=== PATIENT | male | born 1965 | race Caucasian/White ===

== ENCOUNTER 2018-04-22 16:48 | Emergency (ER) | payer OTHER, BC ==
[~2018-04-22] VITALS: Ht 172.7 cm; Wt 72.6 kg
[~2018-04-22 16:48] MED LIST: LIDOCAINE 1% INJ 20 ML 20 ML VIAL ONE
[2018-04-22] MEDS ORDERED: LIDOCAINE 1% INJ 20 ML 20 ML VIAL INJ ONE ×2 (17:00→18:45)
[2018-04-22] MEDS ORDERED: ALPRAZolam 0.5 MG (XANAX) TAB PO SCH (17:00)
--- NOTE | 2018-04-22 17:28 | Diagnostic Imaging Report ---
INDICATION: Crush injury. FINDINGS: There is a comminuted tuft fracture of the left fourth finger with associated soft tissue injury. There are degenerative changes of the DIP and PIP joints. There is no other fracture or dislocation. Soft tissues are unremarkable. IMPRESSION: Comminuted tuft fracture of the left fourth finger with soft tissue injury. Degenerative changes of the DIP and PIP joints. Dictated by: Dictated on workstation # [id number]
--- NOTE | 2018-04-22 17:34 | ED Upper Extremity ---
General Chief Complaint: Laceration Stated Complaint: LT HAND FINGER INJ Nursing Triage Note: PT AMB TO ROOM #1 W/O DIFFICULTY. A&OX4. CO LACERATION WITH CRUSHING INJURY TO LT RING FINGER. PT REPORTS HE WAS AT WORK WHEN HE SMASHED HIS LT RING FINGER INBETWEEN A PIECE OF METAL AND THE CONCRETE FLOOR. PT REPORTS HE HAS HAD A TETANUS SHOT WITHIN THE LAST 5 YEARS. Nursing Sepsis Screen: No Definite Risk Source: patient Exam Limitations: no limitations History of Present Illness Date Seen by Provider: Apr 22, 2018 Time Seen by Provider: 18:24 Initial Comments To ER with reports of crush injury to the left ring finger. This occurred while at work. States that his left distal ring finger was crushed between a piece of sheet metal and the concrete floor. He has had a tetanus shot within the last 5 years. Onset: just prior to arrival Severity: moderate Pain/Injury Location: left 4th finger Modifying Factors: Worse With Movement Allergies and Home Medications Allergies Coded Allergies: No Known Drug Allergies (Unverified , 04/22/18) Home Medications Cephalexin 500 Mg Capsule, 500 MG PO Q6H Prescribed by: MARCO ANTONIO SUNSHINE on 04/22/18 1833 Hydrocodone/Acetaminophen 1 Each Tablet, 1 EACH PO Q4H PRN for PAIN-MODERATE Prescribed by: MARCO ANTONIO SUNSHINE on 04/22/18 1834 Patient Home Medication List Home Medication List Reviewed: Yes Constitutional: see HPI EENTM: see HPI Respiratory: no symptoms reported Cardiovascular: no symptoms reported Genitourinary: no symptoms reported Musculoskeletal: see HPI Skin: no symptoms reported Psychiatric/Neurological: No Symptoms Reported Past Jfunoso-Pfszkg-Xdgdsh Hx Patient Social History Alcohol Use: Rarely Uses Recreational Drug Use: No Smoking Status: Current Everyday Smoker Type Used: Cigarettes 2nd Hand Smoke Exposure: Yes Recent Foreign Travel: No Contact w/Someone Who Travel: No Recent Infectious Disease Expo: No Recent Hopitalizations: No Physical Abuse: No Sexual Abuse: No Immunizations Up To Date Tetanus Booster (TDap): Less than 5yrs Past Medical History Surgeries: Yes Orthopedic Respiratory: No Cardiac: No Neurological: No Genitourinary: No Gastrointestinal: No Musculoskeletal: No Endocrine: No HEENT: No Cancer: No Psychosocial: Yes Anxiety Nursing Suicide Risk Score: 0 Integumentary: No Blood Disorders: No Adverse Reaction/Blood Tranf: No Physical Exam Vital Signs Vital Signs - First Documented 04/22/18 17:07 Temp 98.1 Pulse 92 Resp 16 B/P (MAP) 167/104 (125) Pulse Ox 99 O2 Delivery Room Air Capillary Refill : Less Than 3 Seconds Height, Weight, BMI Height: 5'8.00" Weight: 160lbs. oz. 72.376075mk; BMI Method:Stated General Appearance: WD/WN, no apparent distress HEENT: PERRL/EOMI, normal ENT inspection Neck: non-tender, full range of motion Respiratory: no respiratory distress, no accessory muscle use Gastrointestinal: normal bowel sounds, non tender Shoulder: normal inspection, non-tender Elbow/Forearm: normal inspection, non-tender, Left Wrist: Yes normal inspection, Yes non-tender Hand: Left, laceration (there is a laceration to the pad of the distal left ring finger distal to the DIP joint from the radial side to the ulnar side. Fingernail remains attached but the distal aspect of the nailbed has been peeled from the fingernail. Distally at the very tip of the finger there is brisk capillary refill. More proximally over a dime-sized area of the pad of the finger is an area of delayed capillary refill.), nail injury Neurologic/Tendon: motor deficit, sensory deficit, tendon function deficit Neurologic/Psychiatric: alert Skin: normal color, warm/dry Procedures/Interventions Wound Location: Upper Extremities Wound Length (cm): 3 Wound's Depth, Shape: irregular, bone Wound Explored: clean Irrigated w/ Saline (ccs): 500 Anesthesia: 1% Lidocaine Volume Anesthetic (ccs): 6 Suture: Prolene Suture Size: 4-0 Number of Sutures: 10 Layer Closure?: 1 Number Deep Layer Sutures: 0 Progress Upon arrival he was in quite a bit of distress secondary to pain. I did a digital block of the left ring finger using total of 6 mL of 1% lidocaine without epinephrine. Wound was then scrubbed with chlorhexidine/saline solution and irrigated with 500 malaise of the same. Tip of the finger was then sutured back as it did maintain some blood flow and there was evidence of capillary refill distally. Total of 10 simple interrupted sutures were placed. The fingernail was left in place to help act as a splint. Was thoroughly irrigated. I'll place him on empiric Keflex. He'll get a shot of Rocephin here. He'll get tube gauze and Xeroform. We'll have him follow-up with orthopedics. I did discuss with him the possibility of the fingertip ultimately needing amputation and he is understanding of this. I did discuss the case with Dr. Daly in the emergency room and he agrees with the plan of care. Progress/Results/Core Measures Results/Orders My Orders Orders - MARCO ANTONIO SUNSHINE APRN Lidocaine 1% Inj 20 Ml (Xylocaine 1% Inj (04/22/18 17:00) Hand, Left, 3 Views (04/22/18 16:52) Alprazolam Tablet (Xanax Tablet) (04/22/18 17:00) Lidocaine 1% Inj 20 Ml (Xylocaine 1% Inj (04/22/18 16:47) Hydrocodone/Apap 5/325 Tablet (Lortab 5 (04/22/18 18:45) Ceftriaxone Injection (Rocephin Injectio (04/22/18 18:45) Lidocaine 1% Inj 20 Ml (Xylocaine 1% Inj (04/22/18 18:45) Medications Given in ED Current Medications Medications Dose Ordered Sig/Lexi Route Start Time Stop Time Status Last Admin Dose Admin Acetaminophen/ Hydrocodone Bitart 1 tab ONCE ONCE PO 04/22/18 18:45 04/22/18 18:46 DC 04/22/18 18:54 1 TAB Ceftriaxone Sodium 1,000 mg ONCE ONCE IM 04/22/18 18:45 04/22/18 18:46 DC 04/22/18 18:58 1,000 MG Lidocaine HCl 2.1 ml ONCE ONCE INJ 04/22/18 18:45 04/22/18 18:46 DC 04/22/18 19:14 2.1 ML Lidocaine HCl 20 ml ONCE ONCE INJ 04/22/18 17:00 04/22/18 17:01 DC 04/22/18 17:00 10 ML Vital Signs/I&O 04/22/18 04/22/18 17:07 19:16 Temp 98.1 98.1 Pulse 92 76 Resp 16 16 B/P (MAP) 167/104 (125) 142/101 (125) Pulse Ox 99 98 O2 Delivery Room Air Room Air Blood Pressure Mean: 125 Departure Communication (Admissions) NAME: LUIZA EMERSON MED REC#: [id number] PT STATUS: REG ER : 1965 PHYSICIAN: MARCO ANTONIO SUNSHINE APRN ADMIT DATE: 04/22/18/ER Draft Date of Exam:04/22/18 HAND, LEFT, 3 VIEWS INDICATION: Crush injury. FINDINGS: There is a comminuted tuft fracture of the left fourth finger with associated soft tissue injury. There are degenerative changes of the DIP and PIP joints. There is no other fracture or dislocation. Soft tissues are unremarkable. IMPRESSION: Comminuted tuft fracture of the left fourth finger with soft tissue injury. Degenerative changes of the DIP and PIP joints. Dictated on workstation # [id number] Dict: 04/22/18 1721 Trans: 04/22/18 1728 [id number] Interpreted by: IMMANUEL MEDRANO MD Electronically signed by: Impression Primary Impression: Crush injury to finger Additional Impression: Open fracture of finger Disposition: 01 HOME, SELF-CARE Condition: Stable Departure-Patient Inst. Decision time for Depature: 18:31 Referrals: UNKNOWN (PCP) Primary Care Physician SAMMY SANCHEZ JOHN T MD STRINGER, ROBERT F DO ZAFUTA, MICHAEL P MD Patient Instructions: Laceration Repair With Stitches (DC) Add. Discharge Instructions: 1. Smoking will delay healing and increase the possibility that the tip of this finger does not survive and increase the likelihood of infection. Due to her very best quit or at least significantly reduce her smoking. Take antibiotics as directed. Take the pain medication as directed. If you are unable to follow- up with occupational health or orthopedics by Sunday04/24/18 units should return here to the emergency room for a wound check. All discharge instructions reviewed with patient and/or family. Voiced understanding. Scripts Hydrocodone/Acetaminophen ([place] 5-325 Tablet) 1 Each Tablet 1 EACH PO Q4H PRN for PAIN-MODERATE, #30 TAB Prov: MARCO ANTONIO SUNSHINE APRN 04/22/18 Cephalexin (Keflex) 500 Mg Capsule 500 MG PO Q6H, #28 CAP Prov: MARCO ANTONIO SUNSHINE STONE RUBBER 04/22/18 MARCO ANTONIO SUNSHINE APRN Apr 22, 2018 17:34
[2018-04-22] MEDS ORDERED: CEPH-507 PO (18:33)
[2018-04-22] MEDS ORDERED: HYDR-757 PO (18:34)
[2018-04-22] MEDS ORDERED: HYDROcodone/APAP 5 MG/325 MG (LORTAB) TAB PO ONE (18:45)
[2018-04-22] MEDS ORDERED: cefTRIAXone 1 GM (ROCEPHIN) VIAL IM ONE (18:45)
[2018-04-22 19:16] VITALS: BP 142/101
== END 2018-04-22 19:16 | disposition home or self-care (01) ==
LOC: ER 16:50
DX: S62.605A Fracture of unspecified phalanx of left ring finger, initial encounter for closed fracture (principal); F41.9 Anxiety disorder, unspecified; F17.210 Nicotine dependence, cigarettes, uncomplicated; W23.1XXA Caught, crushed, jammed, or pinched between stationary objects, initial encounter; Y92.59 Other trade areas as the place of occurrence of the external cause; Y99.0 Civilian activity done for income or pay
CPT/HCPCS: 64450; 73130

== ENCOUNTER 2018-04-24 09:00 | Emergency (ER) | payer OTHER, BC ==
[~2018-04-24] VITALS: Ht 172.7 cm; Wt 72.6 kg
[~2018-04-24 09:00] MED LIST changes: +CEPH-507 PO; +HYDR-757 PO; -LIDOCAINE 1% INJ 20 ML 20 ML VIAL ONE
--- NOTE | 2018-04-24 10:07 | ED Upper Extremity ---
General Chief Complaint: Wound Check (No Charge) Stated Complaint: WOUND CHECK Nursing Triage Note: PT AMB TO ROOM #5 W/O DIFFICULTY. A&OX4. PT REPORTS PER DC ORDERS ON 03/22/18 TO RETURN ON THIS DATE FOR WOUND CHECK. RATES PAIN TO LT HAND 4TH FINGER 2/10. AFEBRILE. REPORTS SANGUINEOUS DRAINAGE FIRST 12 HOURS AFTER DC FROM ED REQUIRING GAUZE REINFORCEMENT BUT DENIES DRAINAGE SINCE. DRESSING NOTED TO BE INTACT WITH MODERATE AMOUNT OF DRIED SANGUINEOUS DRAINAGE NOTED. NO REDDNESS, SWELLING, OR PURULNET DRAINAGE NOTED TO WOUND. PT REPORTS HE IS IN THE PROCESS OF SCHEDULING AN APPT WITH [facility] IN [place] FOR FURTHER EVALUATION AND CARE PER ED DC ORDERS, BUT IS WAITING ON WORKMENS COMPENSATION. Source: patient Exam Limitations: no limitations History of Present Illness Date Seen by Provider: Apr 24, 2018 Time Seen by Provider: 09:55 Initial Comments Patient presents to ER by private conveyance with chief complaint that 2 days ago he smashed his left hand fourth digit distal phalanx and suffered skin en route presented to the ER and they sewed the skin back together but he is since then had a lot of swelling loss of sensation and the skin is a bluish awful- looking color. He was told to follow-up in the ER for a wound recheck in 2 days and so he is here. He is having some serosanguineous drainage, numbness and using hydrocodone as needed for his pain. The hydrocodone is treating his pain. No fevers chills or purulent discharge from the finger tip. He was referred to Dr. SANCHEZ, orthopedic surgery and occupational health has been working to get him an appointment but he doesn't have one yet. Patient does not have diabetes or immunocompromise. He is taking the antibiotics as prescribed. Allergies and Home Medications Allergies Coded Allergies: No Known Drug Allergies (Unverified , 04/22/18) Home Medications Cephalexin 500 Mg Capsule, 500 MG PO Q6H Prescribed by: MARCO ANTONIO SUNSHINE on 04/22/181832 Hydrocodone/Acetaminophen 1 Each Tablet, 1 EACH PO Q4H PRN for PAIN-MODERATE Prescribed by: MARCO ANTONIO SUNSHINE on 04/22/181833 Patient Home Medication List Home Medication List Reviewed: Yes Constitutional: No chills, No diaphoresis, No fever EENTM: No ear discharge, No ear pain Respiratory: No cough, No short of breath Cardiovascular: No chest pain, No palpitations Gastrointestinal: No abdominal pain, No nausea, No vomiting Genitourinary: No discharge, No dysuria Musculoskeletal: see HPI Past Vxxolyp-Irbuqw-Tizczc Hx Patient Social History Alcohol Use: Rarely Uses Recreational Drug Use: No Smoking Status: Current Everyday Smoker Type Used: Cigarettes 2nd Hand Smoke Exposure: Yes Recent Foreign Travel: No Contact w/Someone Who Travel: No Recent Hopitalizations: No Immunizations Up To Date Tetanus Booster (TDap): Less than 5yrs Past Medical History Surgeries: Yes Orthopedic Respiratory: No Cardiac: No Neurological: No Genitourinary: No Gastrointestinal: No Musculoskeletal: No Endocrine: No HEENT: No Cancer: No Psychosocial: Yes Anxiety Integumentary: No Blood Disorders: No Adverse Reaction/Blood Tranf: No Physical Exam Vital Signs Vital Signs - First Documented 04/24/18 09:03 Pulse 85 Resp 16 B/P (MAP) 146/93 Pulse Ox 98 O2 Delivery Room Air Capillary Refill : Height, Weight, BMI Height: 5'8.00" Weight: 160lbs. oz. 72.114314dc; 21.09 BMI Method:Stated General Appearance: WD/WN, no apparent distress HEENT: PERRL/EOMI, pharynx normal Cardiovascular: normal peripheral pulses, regular rate, rhythm Respiratory: no respiratory distress, no accessory muscle use Hand: Left (fourth finger distal phalanx is sutured with laceration going around from the nailbed circumferential and a moran blue color skin with serosanguineous discharge and no capillary refill and no sensation.), nail injury, swelling Procedures/Interventions Suture Size: 4-0 Progress/Results/Core Measures Results/Orders My Orders Orders - NONI WILLIS Ct Abdomen/Pelvis W (04/24/18 10:35) Ns Iv 1000 Ml (Sodium Chloride 0.9%) (04/24/18 10:35) Ketorolac Injection (Toradol Injection) (04/24/18 10:45) Vital Signs/I&O 04/24/18 09:03 Pulse 85 Resp 16 B/P (MAP) 146/93 Pulse Ox 98 O2 Delivery Room Air Progress Progress Note : Time: 10:07 Progress Note Left hand fourth finger distal phalanx appears to be devitalized and probably in need of surgical debridement/amputation. We will contact orthopedic surgery Dr. SANCHEZ or Dr. Mcelroy and see if we can facilitate. 1000: Called occupational health and they said the patient has not been seen there yet. They have no plans for setting him up any appointments therefore were going to go ahead and send him to Dr. Mcelroy's clinic so he can help facilitate appropriate management. Consults : Consulting Physician: CHRISTINA MCELROY DO Consults Notes Discussed the case and Dr. Mcelroy says he's in clinic right across the street and willing to see the patient if he does want to walk across. He did ask that we check with occupational health to make sure there wasn't already an appointment with Dr. Vincent. Departure Impression Primary Impression: Crushing injury of finger of left hand Disposition: 01 HOME, SELF-CARE Condition: Stable Departure-Patient Inst. Decision time for Depature: 10:44 Referrals: NO,LOCAL PHYSICIAN (PCP) Primary Care Physician CHRISTINA MCELROY DO Patient Instructions: Crush Injury (DC) Add. Discharge Instructions: Please go from here immediately to Dr. Mcelroy's office across the street for orthopedic evaluation. You will also need to follow-up with occupational health. If you begin to have fevers chills nausea vomiting or other worrisome symptoms then you should return to the ER. If you have pain take the pain medicine prescribed you. Continue taking the antibiotics as prescribed. Please call occupational health on the phone number in your discharge instructions and request an appointment. All discharge instructions reviewed with patient and/or family. Voiced understanding. Work/School Note: Work Release Form Date Seen in the Emergency Department: Apr 24, 2018 Return to Work: Apr 25, 2018 Restrictions: No Restrictions NONI WILLIS Apr 24, 2018 10:07
[2018-04-24] MEDS ORDERED: NS IV 1000 ML 1,000 ML IV SCH (10:35)
[2018-04-24] MEDS ORDERED: KETOROLAC 30 MG/ML VIAL IVP ONE (10:45)
[2018-04-24 10:53] VITALS: BP 146/93
== END 2018-04-24 10:54 | disposition home or self-care (01) ==
LOC: EDUNIT# 09:00 → ER 09:02
DX: S67.195D Crushing injury of left ring finger, subsequent encounter (principal); S61.315D Laceration without foreign body of left ring finger with damage to nail, subsequent encounter; F17.210 Nicotine dependence, cigarettes, uncomplicated; F41.9 Anxiety disorder, unspecified; X58.XXXD Exposure to other specified factors, subsequent encounter

== ENCOUNTER 2018-05-23 15:36 | Outpatient (RCR) | payer BC, OTHER ==
[~2018-05-23 15:36] MED LIST changes: +HYDR-4226 PO; -HYDR-757 PO
== END 2018-06-09 | disposition home or self-care (01) ==
PROVIDERS: ATTEND Nurse Practitioner Family
DX: S67.195D Crushing injury of left ring finger, subsequent encounter (principal); W23.1XXD Caught, crushed, jammed, or pinched between stationary objects, subsequent encounter

== ENCOUNTER 2018-06-18 13:39 | Outpatient (RCR) | payer OTHER ==
[2018-06-26] MEDS ORDERED: PARO-49 PO (13:24)
== END 2018-06-25 15:20 | disposition home or self-care (01) ==
PROVIDERS: ATTEND Nurse Practitioner Family
DX: S67.195D Crushing injury of left ring finger, subsequent encounter (principal); W23.1XXD Caught, crushed, jammed, or pinched between stationary objects, subsequent encounter

== ENCOUNTER 2018-06-26 06:28 | Outpatient (CLI) | payer OTHER ==
[~2018-06-26] VITALS: Ht 172.7 cm; Wt 72.6 kg
[2018-06-26] MEDS ORDERED: PARO-49 PO (13:24)
== END 2018-06-26 13:57 | disposition home or self-care (01) ==
LOC: PREOP 06:28
PROVIDERS: ATTEND Podiatrist Foot Surgery
DX: Z01.818 Encounter for other preprocedural examination (principal)

== ENCOUNTER 2018-06-28 08:47 | Day surgery (SDC) | payer BC, OTHER ==
[~2018-06-28] VITALS: Ht 172.7 cm; Wt 72.6 kg
[~2018-06-28 08:47] MED LIST changes: +PARO-49 PO
--- OUTSIDE RECORDS SUMMARY | 2018-06-28 08:55 | XMS REPORT ---
Author Author JESSICA PIEDRA Organization [facility] Address [address] [place] [address] Care Team Providers Care Rough Rounder Machine Name Role Phone JESSICA PIEDRA Unavailable PROBLEMS Type Condition ICD9-CM Code DVB35-CT Code Onset Dates Condition Status SNOMED Code Problem Anxiety F41.9 Active 49557857 Problem History of substance abuse Z87.898 Active 440398433 Problem Depression, unspecified depression type F32.9 Active [id number] ALLERGIES No Known Allergies ENCOUNTERS Encounter Location Date Diagnosis [facility] [id number] [address] Mar, Anxiety F41.9 and Diarrhea due to drug K52.1 [facility] [id number] [place] [phone] Feb, Anxiety F41.9 ; Depression, unspecified depression type F32.9 and History of substance abuse Z87.898 IMMUNIZATIONS No Known Immunizations SOCIAL HISTORY Never Assessed REASON FOR VISIT Anxiety, Depression-LAUREL kothari, establish care PLAN OF CARE Activity Details Follow Up 3 Months f.u Michael new med start Reason: VITAL SIGNS Weight 157.6 lbs 2018-02-28 Temperature 98.1 degrees Fahrenheit 2018-02-28 Heart Rate 80 bpm 2018-02-28 Respiratory Rate 20 2018-02-28 Blood pressure systolic 110 mmHg 2018-02-28 Blood pressure diastolic 84 mmHg 2018-02-28 MEDICATIONS Medication Instructions Dosage Frequency Start Date End Date Duration Status Celexa 20 mg Orally Once a day 1/2 tablet x 7 days then 1 tab daily 24h Feb, 30 day(s) Active HydrOXYzine Pamoate 25 MG Orally every 8 hrs 1 capsule as needed 8h Active RESULTS No Results PROCEDURES No Known procedures INSTRUCTIONS MEDICATIONS ADMINISTERED No Known Medications
[2018-06-28] MEDS ORDERED: LACTATED RINGERS 1,000 ML IV PRN (08:59)
[2018-06-28] MEDS ORDERED: ceFAZolin INJECTION 1,000 MG in NS (IVPB) 50 ML IV ONE (09:00)
[2018-06-28] MEDS ORDERED: ceFAZolin 1,000 MG/10 ML (ANCEF) VIAL ONE (09:03)
[2018-06-28] MEDS ORDERED: NS (IVPB) 50 ML ONE (09:04)
[2018-06-28] MEDS ORDERED: MEPIVACAINE (CARBOCAINE) 2% 20 ML VIAL ONE (09:08)
[2018-06-28] MEDS ORDERED: BUPIVACAINE 0.5% 30 ML (SENSORCAINE) VIAL ONE (09:09)
[2018-06-28] MEDS ORDERED: DEXAMETHASONE 10 MG/ML (DECADRON) 1 ML VIAL ONE (09:09)
--- NOTE | 2018-06-28 09:10 | Progress Note-Pre Operative ---
Pre-Operative Progress Note H&P Reviewed The H&P was reviewed, patient examined and no changes noted. Date Seen by Provider: Jun 28, 2018 Time Seen by Provider: 09:07 Date H&P Reviewed: Jun 28, 2018 Time H&P Reviewed: 09:01 Pre-Operative Diagnosis: tailors bunion right fpoot MOLLY SCHULTZ DPRamonita Jun 28, 2018 9:10 am
[2018-06-28] MEDS ORDERED: MIDAZOLAM 2 MG/2 ML (VERSED) VIAL ONE (09:11)
[2018-06-28] MEDS ORDERED: fentaNYL INJECTION 100 MCG/2 ML AMP ONE (09:11)
[2018-06-28] MEDS ORDERED: PROPOFOL INJECTION 50 ML IV ONE (09:11)
[2018-06-28 09:15] VITALS: BP 115/87
[2018-06-28] MEDS ORDERED: LIDOCAINE PF 2% 5 ML (XYLOCAINE) VIAL ONE (09:47)
--- NOTE | 2018-06-28 10:10 | Discharge Instructions ---
Discharge Instructions Discharge Medications New, Converted or Re-Newed RX: RX Given to Pt/Family Patient Instructions Patient Instructions 1. Follow up in office in 2 weeks. 2. Diet as tolerated. 3. Activity as tolerated. Activity & Diet Activity as Tolerated: Yes MOLLY SCHULTZ DPM Jun 28, 2018 10:10 am
[2018-06-28] MEDS ORDERED: LACTATED RINGERS 1,000 ML IV SCH (10:11)
--- NOTE | 2018-06-28 10:11 | Progress Note-Post Operative ---
Post-Operative Progess Note Surgeon (s)/Laborer Heading (s) Surgeon MOLLY SCHULTZ DPM Laborer Heading: none Pre-Operative Diagnosis tailors bunion right fpoot Post-Operative Diagnosis same Procedure & Operative Findings Date of Procedure 06/28/18 Procedure Performed/Findings partial fifth metatarsal head resection Anesthesia Type regional with asxsist Estimated Blood Loss Estimated blood loss (mL): min Specimens/Packing Specimens Removed none Packing: none MOLLY SCHULTZ DPM Jun 28, 2018 10:11 am
[2018-06-28] MEDS ORDERED: HYDROcodone/APAP 5 MG/325 MG (LORTAB) TAB PO PRN (10:15)
[2018-06-28 10:35] VITALS: BP 109/78
[2018-06-28] MEDS ORDERED: HYDR-34 PO (10:57)
[2018-06-28 11:05] VITALS: BP 121/80
[2018-06-28 11:20] VITALS: BP 121/80
--- NOTE | 2018-06-28 11:22 | Anesthesia-General Post-Op ---
MAC Patient Condition Mental Status/LOC: Same as Preop Cardiovascular: Satisfactory Nausea/Vomiting: Absent Respiratory: Satisfactory Pain: Controlled Complications: Absent Post Op Complications Complications None Follow Up Care/Instructions Patient Instructions None needed. Anesthesiology Discharge Order Discharge Order Patient is doing well, no complaints, stable vital signs, no apparent adverse anesthesia problems. No complications reported per nursing. TOMMY FOLEY CRNA Jun 28, 2018 11:22
--- NOTE | 2018-06-28 12:12 | Diagnostic Imaging Report ---
INDICATION: Postop right foot surgery FINDINGS: Two views of the right foot show no fracture or dislocation. There are no radiopaque foreign objects. IMPRESSION: Negative right foot. Dictated by: Dictated on workstation # [id number]
--- NOTE | 2018-06-28 15:41 | OPERATIVE REPORT ---
DATE OF SERVICE: 06/28/2018 PREOPERATIVE DIAGNOSIS: Tailor's bunion, right foot. POSTOPERATIVE DIAGNOSIS: Tailor's bunion, right foot. PROCEDURE PERFORMED: Partial fifth metatarsal head resection, right foot. DESCRIPTION OF PROCEDURE: With the patient in supine position, having been affected by a regional anesthetic, utilizing 6 mL of 50:50 mixture of 0.5% Marcaine plain and 1% Carbocaine plain with anesthesia assist, sterile prep and drape were performed and a tourniquet was applied above the level of the right ankle. A 5 cm linear incision was made over the dorsal aspect of the fifth MPJ right. This was deepened with sharp and blunt dissection. The fifth metatarsophalangeal joint was incised in linear fashion. Capsule and periosteum were freed from the dorsal, medial and lateral aspect of the fifth metatarsal head. Lateral aspect of fifth metatarsal head was noted to be splayed and hypertrophied and was resected in an angular fashion from proximal lateral to distal medial. The lateral 1/3 to 1/2 of the metatarsal head was resected with the remaining bone surface rasped smooth. The area was inspected for any other anatomical abnormalities, none were noted. Capsule was closed with continuous locked suture of 3-0 Vicryl. Superficial fascia and skin were closed with continuous locked suture of 4-0 Prolene. Tourniquet was released. Blood flow returned to the digits was within normal limits. Decadron was introduced into the operative site to control postoperative pain and swelling. Adaptic and sterile corrective compressive wet to dry dressing was applied, carried above the level of the ankle and covered with circular Coban. The patient was given Rx Lortab 7.5, #24, every 6 hours p.r.n. foot pain. The patient is to be seen in the office in 2 weeks for appropriate followup care. Job ID: [id number] DocumentID: [id number] Dictated Date: 06/28/2018 10:40:18 Ict Security Specialist Date: 06/28/2018 15:40:59 Dictated By: MOLLY SCHULTZ DPM
== END 2018-06-28 11:20 | disposition home or self-care (01) ==
LOC: SDC 08:47
PROVIDERS: ATTEND Podiatrist Foot Surgery
DX: M21.621 Bunionette of right foot (principal); F17.210 Nicotine dependence, cigarettes, uncomplicated
CPT/HCPCS: 73620; 87081